=== PATIENT | male | born 1985 | race Caucasian/White ===

== ENCOUNTER 2018-05-25 13:37 | Emergency (ER) | payer MEDICAID ==
[~2018-05-25] VITALS: Ht 172.7 cm; Wt 95.7 kg
[2018-05-25 13:40] VITALS: Ht 172.7 cm; Wt 95.7 kg
[2018-05-25 15:44] VITALS: BP 117/69
== END 2018-05-25 15:44 | disposition home or self-care (01) ==
LOC: ED 13:37
DX: G89.29 Other chronic pain (principal); M25.561 Pain in right knee; M54.5 Low back pain; F15.90 Other stimulant use, unspecified, uncomplicated; F20.9 Schizophrenia, unspecified; F32.9 Major depressive disorder, single episode, unspecified; Z76.0 Encounter for issue of repeat prescription